=== PATIENT | male | born 1960 | race African-American/Black ===

== ENCOUNTER 2016-12-27 06:45 | Emergency (ER) | payer MEDICAID ==
[~2016-12-27] VITALS: Ht 177.8 cm; Wt 65.8 kg
--- NOTE | 2016-12-27 08:05 | PHYS DOC ---
Past Medical History Smoking: Cigarettes Adult General Chief Complaint Chief Complaint: Neck Pain HPI HPI Patient is a 56 year old male presents to the emergency department stating he developed neck pain on the left side of his neck that started at 10 pm. Patient states in approximately 4 hours the pain developed on the right side of his neck as well. He states he had taken Tylenol at 3 pm. He states he has increase pain and discomfort with moving his head. He denies light sensitivity. 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 Patient states when he left he was disoriented and confused and fell outside work. He states when he fell he rolled with fall. Denies any injury from the fall. Review of Systems Review of Systems Constitutional: Denies fever or chills [] Eyes: Denies change in visual acuity, redness, or eye pain [] HENT: Denies nasal congestion or sore throat [] Respiratory: Denies cough or shortness of breath [] Cardiovascular: No additional information not addressed in HPI [] GI: Denies abdominal pain, nausea, vomiting, bloody stools or diarrhea [] : Denies dysuria or hematuria [] Musculoskeletal: c/o neck pain Integument: Denies rash or skin lesions [] Neurologic: Denies headache, focal weakness or sensory changes [] Endocrine: Denies polyuria or polydipsia [] Allergies Allergies Allergies Coded Allergies Type Severity Reaction Last Updated Verified No Known Drug Allergies 12/27/16 No Physical Exam Physical Exam Constitutional: Well developed, well nourished, no acute distress, non-toxic appearance. [] HENT: Normocephalic, atraumatic, bilateral external ears normal, oropharynx moist, no oral exudates, nose normal. [] Eyes: PERRLA, EOMI, conjunctiva normal, no discharge. [] Neck: Normal range of motion, no tenderness, supple, no stridor. [] Cardiovascular:Heart rate regular rhythm, no murmur [] Lungs & Thorax: Bilateral breath sounds clear to auscultation [] Abdomen: Bowel sounds normal, soft, no tenderness, no masses, no pulsatile masses. [] Skin: Warm, dry, no erythema, no rash. [] Back: Bilateral neck and upper back tenderness,no cervical spine, thoracic spine tenderness, no step-offs, no deformities and no crepitus. Extremities: No tenderness, no cyanosis, no clubbing, ROM intact, no edema. [] Neurologic: Alert and oriented X 3, normal motor function, normal sensory function, no focal deficits noted. Patient with equal evp head of smg [employer] experience strategy noted bilaterally Psychologic: Affect normal, judgement normal, mood normal. [] Current Patient Data Vital Signs Vital Signs Date Time Temp Pulse Resp B/P (MAP) Pulse Ox O2 Delivery O2 Flow Rate FiO2 12/27/16 08:59 63 19 153/89 (110) 99 Room Air 12/27/16 08:06 98.2 98.2 Lab Values Laboratory Tests Test 12/27/16 07:05 12/27/16 07:35 Urine Collection Type Unknown Urine Color Yellow Urine Clarity Clear Urine pH 6.0 Urine Specific [place] 1.010 Urine Protein Negative mg/dL (NEG-TRACE) Urine Glucose (UA) Negative mg/dL (NEG) Urine Ketones (Stick) Negative mg/dL (NEG) Urine Blood Negative (NEG) Urine Nitrite Negative (NEG) Urine Bilirubin Negative (NEG) Urine Urobilinogen Dipstick 0.2 mg/dL (0.2 mg/dL) Urine Leukocyte Esterase Negative (NEG) Urine RBC 0 /HPF (0-2) Urine WBC 0 /HPF (0-4) Urine Squamous Epithelial Cells Few /LPF Urine Bacteria 0 /HPF (0-FEW) Urine Opiates Screen Neg (NEG) Urine Methadone Screen Neg (NEG) Urine Barbiturates Neg (NEG) Urine Phencyclidine Screen Neg (NEG) Urine Amphetamine/Methamphetamine Neg (NEG) Urine Benzodiazepines Screen Neg (NEG) Urine Cocaine Screen Neg (NEG) Urine Cannabinoids Screen Neg (NEG) Urine Ethyl Alcohol Neg (NEG) White Blood Count 14.0 x10^3/uL (4.0-11.0) H Red Blood Count 4.15 x10^6/uL (4.30-5.70) L Hemoglobin 13.4 g/dL (13.0-17.5) Hematocrit 39.3 % (39.0-53.0) Mean Corpuscular Volume 95 fL (79-100) Mean Corpuscular Hemoglobin 32 pg (25-35) Mean Corpuscular Hemoglobin Concent 34 g/dL (31-37) Red Cell Distribution Width 13.9 % (11.5-14.5) Platelet Count 297 x10^3/uL (140-400) Neutrophils (%) (Auto) 75 % (31-73) H Lymphocytes (%) (Auto) 10 % (24-48) L Monocytes (%) (Auto) 12 % (0-9) H Eosinophils (%) (Auto) 2 % (0-3) Basophils (%) (Auto) 1 % (0-3) Neutrophils # (Auto) 10.5 x10^3uL (1.8-7.7) H Lymphocytes # (Auto) 1.5 x10^3/uL (1.0-4.8) Monocytes # (Auto) 1.7 x10^3/uL (0.0-1.1) H Eosinophils # (Auto) 0.2 x10^3/uL (0.0-0.7) Basophils # (Auto) 0.1 x10^3/uL (0.0-0.2) Sodium Level 138 mmol/L (136-145) Potassium Level 4.2 mmol/L (3.5-5.1) Chloride Level 103 mmol/L (98-107) Carbon Dioxide Level 27 mmol/L (21-32) Anion Gap 8 (6-14) Blood Urea Nitrogen 12 mg/dL (8-26) Creatinine 0.8 mg/dL (0.7-1.3) Estimated GFR (Cockcroft-Gault) 100.7 BUN/Creatinine Ratio 15 (6-20) Glucose Level 103 mg/dL (70-99) H Calcium Level 9.0 mg/dL (8.5-10.1) Total Bilirubin 0.3 mg/dL (0.2-1.0) Aspartate Amino Transferase (AST) 29 U/L (15-37) Alanine Aminotransferase (ALT) 18 U/L (16-63) Alkaline Phosphatase 87 U/L (46-116) Troponin I Quantitative < 0.017 ng/mL (0.000-0.055) Total Protein 7.9 g/dL (6.4-8.2) Albumin 3.7 g/dL (3.4-5.0) Albumin/Globulin Ratio 0.9 (1.0-1.7) L Ethyl Alcohol Level < 10 mg/dL (0-10) Laboratory Tests 12/27/16 07:35 Laboratory Tests 12/27/16 07:35 EKG EKG [] Radiology/Procedures Radiology/Procedures [facility] [address] [place] [address] IMAGING REPORT Signed PATIENT: JADE KOHLI ACCOUNT: [id number] : 1960 LOCATION: ER AGE: 56 SEX: M EXAM STATUS: REG ER ORD. PHYSICIAN: MANDY MOORE APRN REASON: disoriented, confused, fall PROCEDURE: CT HEAD AND CERVICAL SPINE WO CT of the head without contrast, 12/27/2016: History: Fall Comparison is made to a study from 06/26/2009. Today's images are partially compromised by patient motion artifact. The ventricles are within normal limits in size. There is no shift of the midline structures. There is no evidence of acute intracranial hemorrhage or mass effect. IMPRESSION: No acute intracranial abnormality is detected. CT of the cervical spine without contrast, 12/27/2016: Noncontrast scans were obtained with multiplanar reconstructions produced. There are mild scattered marginal spurs in the cervical spine. There are mild degenerative changes at scattered facet joints. There is mild posterior disc bulging at C3-4 and C4-5. The combination of findings is causing mild central spinal stenosis at several levels. A coarse calcification along the inferior aspect of the anterior arch of C1 may be on a developmental or degenerative basis. No acute fracture or dislocation is identified. IMPRESSION: 1. Mild to moderate scattered degenerative changes. 2. No acute bony abnormality is detected. PQRS Compliance Statement: One or more of the following individualized dose reduction techniques were utilized for this examination: 1. Automated exposure control 2. Adjustment of the mA and/or kV according to patient size 3. Use of iterative reconstruction technique DICTATED and SIGNED BY: NORA OAKLEY MD DATE: 12/27/16 0804 CC: MANDY MOORE APRN; NO PCP; NON,STAFF ~ [] Course & Med Decision Making Course & Med Decision Making Pertinent Labs and Imaging studies reviewed. (See chart for details) During the assessment and HPI patient sat in the bed with eyes closed. Patient made no eye contact with the provider. When patient was informed of lab test being ordered patient then looked at the provider asking why we need a urine sample. Patient's CT scan was negative for any abnormalities of the head or cervical spine. Patient will be provided with Flexeril and Toradol as. Patient will be discharged home in stable condition with recommendations to follow-up with primary care physician. Denies back to the areas of discomfort on 20 minutes off 20 minutes several times a day. Patient was instructed Flexeril will cause drowsiness do not take any be alert and oriented. All questions and concerns been answered at patient's bedside. Dragon Disclaimer Dragon Disclaimer This electronic medical record was generated, in whole or in part, using a voice recognition dictation system. Departure Departure Impression: Primary Impression: Cervical muscle strain Disposition: HOME, SELF-CARE Condition: STABLE Patient Instructions: Soft Tissue Injury of the Neck, [id number] Additional Instructions: Activity as tolerated Medication as prescribed Ibuprofen 800 mg every 8 hours Flexeril will cause drowsiness do not take if you need to be alert and oriented Ice packs on 20 minutes and off 20 minutes several times a day Followup with primary care provider in 7-10 days Return to emergency department as needed for signs and symptoms that become worse. Scripts Cyclobenzaprine Hcl (CYCLOBENZAPRINE HCL) 10 Mg Tablet 1 TAB PO TID Y for MUSCLE SPASMS, #30 TAB Prov: MANDY MOORE APRN 12/27/16 Problem Qualifiers Primary Impression: Cervical muscle strain Encounter type: initial encounter Qualified Codes: S16.1XXA - Strain of muscle, fascia and tendon at neck level, initial encounter MANDY MOORE APRN Dec 27, 2016 08:05
[2016-12-27 08:15] LABS: BASO # 0.1 x10^3/uL (0.0-0.2); BASO % 1 % (0-3); EOS % 2 % (0-3); HEMATOCRIT 39.3 % (39.0-53.0); HEMOGLOBIN 13.4 g/dL (13.0-17.5); LYMPH # 1.5 x10^3/uL (1.0-4.8); LYMPH % 10 % (24-48); MEAN CORPUSCULAR HEMOGLOBIN 32 pg (25-35); MEAN CORPUSCULAR HGB CONC 34 g/dL (31-37); MEAN CORPUSCULAR VOLUME 95 fL (79-100); MONO % 12 % (0-9); NEUT % 75 % (31-73); PLATELET COUNT 297 x10^3/uL (140-400); RED BLOOD COUNT 4.15 x10^6/uL (4.30-5.70); RED CELL DISTRIBUTION WIDTH 13.9 % (11.5-14.5)
[2016-12-27 08:27] LABS: CREATININE 0.8 mg/dL (0.7-1.3); GFR 100.7; POTASSIUM 4.2 mmol/L (3.5-5.1)
[2016-12-27 08:33] LABS: ALBUMIN 3.7 g/dL (3.4-5.0); ALBUMIN/GLOBULIN RATIO 0.9 (1.0-1.7); TOTAL BILIRUBIN 0.3 mg/dL (0.2-1.0); TOTAL PROTEIN 7.9 g/dL (6.4-8.2)
[2016-12-27 09:08] LABS: BARBITURATES NEG (NEG); BENZODIAZEPINES NEG (NEG); COCAINE NEG (NEG); METHADONE NEG (NEG); OPIATES NEG (NEG)
[2016-12-27 09:09] LABS: CANNABINOIDS NEG (NEG); PHENCYCLIDINE NEG (NEG)
[2016-12-27 09:18] LABS: BILIRUBIN,URINE NEGATIVE (NEG); GLUCOSE,URINE NEGATIVE (NEG); PROTEIN,URINE NEGATIVE (NEG-TRACE); UROBILINOGEN,URINE 0.2 mg/dL (0.2 mg/dL)
[2016-12-27 09:19] LABS: BACTERIA,URINE 0 /HPF (0-FEW); NITRITE,URINE NEGATIVE (NEG); RBC,URINE 0 /HPF (0-2); SQUAMOUS EPITHELIAL CELL,UR FEW /LPF; WBC,URINE 0 /HPF (0-4)
[2016-12-27 09:59] VITALS: BP 150/89
--- NOTE | 2016-12-27 10:06 | RAD ---
CT of the head without contrast, 12/27/2016: History: Fall Comparison is made to a study from 06/26/2009. Today's images are partially compromised by patient motion artifact. The ventricles are within normal limits in size. There is no shift of the midline structures. There is no evidence of acute intracranial hemorrhage or mass effect. IMPRESSION: No acute intracranial abnormality is detected. CT of the cervical spine without contrast, 12/27/2016: Noncontrast scans were obtained with multiplanar reconstructions produced. There are mild scattered marginal spurs in the cervical spine. There are mild degenerative changes at scattered facet joints. There is mild posterior disc bulging at C3-4 and C4-5. The combination of findings is causing mild central spinal stenosis at several levels. A coarse calcification along the inferior aspect of the anterior arch of C1 may be on a developmental or degenerative basis. No acute fracture or dislocation is identified. IMPRESSION: 1. Mild to moderate scattered degenerative changes. 2. No acute bony abnormality is detected. PQRS Compliance Statement: One or more of the following individualized dose reduction techniques were utilized for this examination: 1. Automated exposure control 2. Adjustment of the mA and/or kV according to patient size 3. Use of iterative reconstruction technique
[2016-12-27] MEDS ORDERED: CYCL10TA2 PO (10:13)
[2016-12-27] MEDS ORDERED: KETOROLAC 30 MG/ML INJ. IV ONE (10:15)
[2016-12-27] MEDS ORDERED: CYCLOBENZAPRINE 10 MG TABLET. PO ONE (10:15)
== END 2016-12-27 10:25 | disposition home or self-care (01) ==
LOC: ER 06:45
DX: S16.1XXA Strain of muscle, fascia and tendon at neck level, initial encounter (principal); F17.210 Nicotine dependence, cigarettes, uncomplicated; W18.39XA Other fall on same level, initial encounter; Y93.89 Activity, other specified; Y99.8 Other external cause status; Y92.89 Other specified places as the place of occurrence of the external cause
CPT/HCPCS: 36415; 70450; 72125; 80053; 80307; 81001; 84484; 85025; 96374; 99285; G0480; J1885; G0479

== ENCOUNTER 2017-05-23 14:14 | Emergency (ER) | payer OTHER, MEDICAID | END 2017-05-23 15:40 | disposition home or self-care (01) | LOC: ER 14:14 | DX: M79.671 Pain in right foot (principal); I10 Essential (primary) hypertension; F14.10 Cocaine abuse, uncomplicated; F12.10 Cannabis abuse, uncomplicated | CPT/HCPCS: 73630; 99284 ==

== ENCOUNTER 2017-07-22 09:12 | Emergency (ER) | payer OTHER, MEDICAID | END 2017-07-22 11:12 | disposition home or self-care (01) | LOC: ER 09:12 | DX: M77.11 Lateral epicondylitis, right elbow (principal); I10 Essential (primary) hypertension; F12.10 Cannabis abuse, uncomplicated; F17.210 Nicotine dependence, cigarettes, uncomplicated; F14.10 Cocaine abuse, uncomplicated | CPT/HCPCS: 73080; 99284 ==